=== PATIENT | male | born 1995 | race Two or more races ===

== ENCOUNTER 2024-03-10 00:26 | Emergency (ER) | payer BC, SELFPAY ==
[2024-03-10 00:40] VITALS: BP 150/80; PULSE 97; RESP 18; TEMP 36.6; O2SAT 93; BMI 25.0
--- NOTE | 2024-03-10 00:43 | XR_ITS ---
Examination: PA lateral chest 2 views TECHNIQUE: Upright PA lateral chest 2 views Exam date and time: March 2024 0124 hours Comparison December 02, 2022 INDICATIONS: Coughing shortness of breath today FINDINGS: Normal heart size. Lungs are clear. The osseous structures are intact IMPRESSION: No active disease
[2024-03-10 01:21] VITALS: PULSE 68
[2024-03-10] MEDS: IPRATROPIUM RT 0.5 MG/ 2.5 ML NEBU 1 MG INH (01:21)
[2024-03-10] MEDS: SODIUM CHLORIDE RT SOL 0.9% 3 ML NEBU INH (01:21)
[2024-03-10] MEDS: ALBUTEROL RT 2.5 MG/0.5 ML NEBU 10 MG INH (01:21)
[2024-03-10 01:27] VITALS: PULSE 67; RESP 18; O2SAT 99
[2024-03-10 01:27] LABS: Alanine Aminotransferase 15 U/L (10-49); Albumin, Serum 4.4 gm/dL (3.5-5.0); Alkaline Phosphatase 50 U/L (46-116); Anion Gap 7 (7-16); Aspartate Amino Transferase 12 U/L (0-34); BUN/Creatinine Ratio 16 Ratio (12-20); Bilirubin,Total 0.2 mg/dL (0.3-1.2); Blood Urea Nitrogen 16 mg/dL (9-23); Calcium 9.4 mg/dL (8.3-10.6); Calcium (Corrected) 9.4 mg/dL (8.5-10.1); Carbon Dioxide 30.9 mMol/L (20.0-31.0); Chloride 105 mMol/L (98-107); Estimated Creatinine Clearance 129.1 mL/min (>60); Globulin 2.2 gm/dL (2.3-3.5); Glucose 108 mg/dL (74-106); Osmolality,Calculated 287 (275-295); Sodium 143 mMol/L (136-145); Total Protein 6.6 gm/dL (5.7-8.2); eGFR > 60 See Note
[2024-03-10 01:28] LABS: Basophils % (Auto) 0 % (0-2.5); Eosinophils # (Auto) 0.1 Thou/mm3 (0.0-0.5); Eosinophils % (Auto) 1 % (0-10); Hematocrit 42.2 % (41.0-53.0); Hemoglobin 13.5 g/dL (13.5-16.0); Immature Granulocytes % (Auto) 1 % (0-0); Lymphocytes % (Auto) 30 % (10-50); Mean Corpuscular Hemoglobin 25.9 pg (25.0-35.0); Mean Corpuscular Volume 81 fL (80-100); Monocytes # (Auto) 0.6 Thou/mm3 (0.0-0.8); Monocytes % (Auto) 7 % (0-12); Neutrophils % (Auto) 61 % (37-80); Nucleated Red Blood Cell % 0 /100 WBC (0); Platelet Count 169 Thou/mm3 (140-440); RDW Standard Deviation 38.3 fL (35.1-43.9); Red Blood Count 5.21 Miln/mm3 (4.50-5.90); White Blood Count 9.9 Thou/mm3 (3.8-10.6)
--- NOTE | 2024-03-10 01:53 | PD.EDRME ---
Rapid Medical Screening Exam RME Arrival date/time: 03/10/24 00:26 28-year-old male past medical history of asthma presents emergency department complaining of shortness of breath. Chief Complaint: Asthma Time Seen by Provider: 03/10/24 00:38 Vital signs: Vital Signs Temperature 97.8 F 03/10/24 00:40 Pulse Rate 97 03/10/24 00:40 Respiratory Rate 18 03/10/24 00:40 Blood Pressure 150/80 H 03/10/24 00:40 Pulse Oximetry (%) 93 L 03/10/24 00:40 Oxygen Delivery Method Room Air 03/10/24 00:40 Vital signs reviewed by provider: Yes
--- NOTE | 2024-03-10 02:28 | EDNOTE_ITS ---
ED Asthma RME/HPI General Chief Complaint: Asthma Stated Complaint: SOB Hx of Asthma Time Seen by Provider: 03/10/24 00:38 Source: patient Arrival date/time: 03/10/24 00:26 28-year-old male past medical history of asthma presents emergency department complaining of shortness of breath that started today. Patient reports recently seen his primary care provider and prescribed him 7-day course of steroids. Patient denies any fever, chills, vomiting, or any other associated symptom. Mode of arrival: ambulatory Limitations: no limitations RME / HPI RME / HPI Narrative: 03/10/24 00:26 28-year-old male past medical history of asthma presents emergency department complaining of shortness of breath. Related Data Previous Rx's ?Medication ?Instructions ?Recorded HYDROCODONE BIT/ACETAMINOPHEN 1 tab PO Q4-6HR PRN PAIN #30 tabs 03/13/13 (Vicodin 5/300) ibuprofen 600 mg tablet 600 mg PO TIDPC #60 tabs 03/13/13 fluticasone 100 mcg-salmeterol 50 1 inh inhalation BID #60 ea 12/03/22 mcg/dose blistr powdr for inhalation Allergies Allergy/AdvReac Type Severity Reaction Status Date / Time No Known Allergies Allergy Unverified 12/03/22 10:20 Review of Systems Review of Systems Systems Reviewed: All systems reviewed, normal except as documented Constitutional Constitutional: Reports system reviewed and no additional complaints, except as documented, Denies body ache(s), Denies chills and Denies fever(s) Eyes Eyes: Reports system reviewed and no additional complaints, except as documented and Denies change in vision ENT Ears, Nose, Mouth, and Throat: Reports system reviewed and no additional complaints, except as documented, Denies disequilibrium, Denies dizziness, Denies sore throat and Denies vertigo Cardiovascular Cardiovascular: Reports system reviewed and no additional complaints, except as documented, Denies chest pain and Reports dyspnea Respiratory Respiratory: Reports system reviewed and no additional complaints, except as documented, Denies chest congestion, Denies cough and Reports dyspnea Gastrointestinal Gastrointestinal: Reports system reviewed and no additional complaints, except as documented, Denies abdominal pain, Denies nausea and Denies vomiting Musculoskeletal Musculoskeletal: Reports system reviewed and no additional complaints, except as documented, Denies abnormal gait and Denies arthralgias Integumentary/Breasts Skin/Breast: Reports system reviewed and no additional complaints, except as documented, Denies erythema, Denies rash and Denies wounds Neurologic Neurologic: Reports system reviewed and no additional complaints, except as documented, Denies abnormal gait, Denies disequilibrium, Denies dizziness and Denies vertigo Past Medical History Past Medical History CARDIAC: Negative Congestive Heart Failure RESPIRATORY: Positive Asthma; Negative Chronic Obstructive Pulmonary Disease (COPD) GENITOURINARY: Negative Renal Disease ENDOCRINE: Negative Diabetes Mellitus Type 1 or Diabetes Mellitus Type 2 Social History SMOKING STATUS: Former smoker ED Exam General Limitations: Present no limitations General appearance: Present alert and in no apparent distress Head Head exam: Present atraumatic Eye Eye exam: Present normal appearance, PERRL and EOMI ENT ENT exam: Present normal exam, normal oropharynx and mucous membranes moist Neck Neck exam: Present normal inspection, full ROM and trachea midline Chest Chest inspection: Present normal inspection and symmetric chest wall rise Respiratory Respiratory exam: Present normal lung sounds bilaterally and wheezes (Expiratory wheeze throughout) Cardiovascular Cardiovascular exam: Present regular rate, normal rhythm and normal heart sounds Abdominal Exam Abdominal exam: Present soft and normal bowel sounds Extremities Exam Extremities exam: Present normal inspection and full ROM Back Exam Back exam: Present normal inspection and full ROM Neurological Exam Neurological exam: Present alert, oriented X3 and CN II-XII intact Psychiatric Psychiatric exam: Present normal affect and normal mood Skin Skin exam: Present warm, dry, intact and normal color Course Quality Measures none Orders Category Date Time Status Bedside Influenza A&B Antigen Test NOW Care 03/10/24 00:43 Completed XR chest 2V Stat Exams 03/10/24 00:43 Taken CBC Stat Lab 03/10/24 01:00 Completed CMP [Comprehensive Metabolic Panel] Stat Lab 03/10/24 01:00 Completed ALBUTEROL RT 0.5ml [Proventil Rt 0.5ml] Med 03/10/24 00:43 Discontinued 10 mg INH X1 ONE Dexamethasone Inj [Decadron Inj] Med 03/10/24 01:09 Discontinued 10 mg IM X1 ONE Ipratropium [place] Rt Kaley [Atrovent Rt Kaley] Med 03/10/24 00:43 Discontinued 1 mg INH X1 ONE Sodium Chloride Rt Kaley 0.9% [NS Rt Kaley 0.9%] Med 03/10/24 00:43 Active 3 ml INH PRN PRN Vital Signs Vital signs: Vital Signs Temperature 97.8 F 03/10/24 00:40 Pulse Rate 97 03/10/24 00:40 Respiratory Rate 18 03/10/24 00:40 Blood Pressure 150/80 H 03/10/24 00:40 Pulse Oximetry (%) 93 L 03/10/24 00:40 Oxygen Delivery Method Room Air 03/10/24 00:40 93% room air within normal limits Asthma MDM Narrative MDM Narrative:: 28-year-old male past medical history of asthma presents emergency department complaining of shortness of breath that started today. Patient reports recently seen his primary care provider and prescribed him 7-day course of steroids. Patient denies any fever, chills, vomiting, or any other associated symptom. Patient given steroids and hour-long breathing treatment which significantly improved wheezing and symptoms. Patient speaking in full sentences with no obvious nasal flaring or tripoding. Patient reports has 7-day course of steroids that he just started yesterday. Patient reports also has inhaler at home. Patient stable for discharge instructed to have close follow-up with primary care provider in 24 to 48 hours and return immediately to emergency department for any increased shortness of breath or worsening symptoms. Patient data External records reviewed:: [facility] previous records Clinical information provided by:: patient Social determinants that could affect healthcare access:: none Patient has the following chronic illnesses:: Asthma How is presenting disease/condition affected by chronic disease/condition?: exacerbated by Evaluation data The following diagnostics were reviewed and interpreted by me:: lab results and radiology exam(s) Lab and/or radiology exams considered but not ordered:: Ordered Interpretation Summary: Interpreted by me Medications / Prescriptions Medications or Prescriptions considered but not ordered:: Ordered Medication administrations:: Medication Administration History Sodium Chloride (Sodium Chloride Rt Kaley 0.9% 3 Ml Nebu) 3 ml INH PRN PRN PRN Reason: SOLN Stop: 04/09/24 00:42 Last Admin: 03/10/24 01:21 Dose: 3 ml Documented By: BIBIANA Discontinued Medications Albuterol (Albuterol Rt 2.5 Mg/0.5 Ml Nebu) 10 mg INH X1 ONE Stop: 03/10/24 00:44 Last Admin: 03/10/24 01:21 Dose: 10 mg Documented By: PAR Dexamethasone Sodium Phosphate (Dexamethasone Sod Phos Inj 10 Mg/Ml Vial) 10 mg IM X1 ONE Stop: 03/10/24 01:10 Ipratropium [place] (Ipratropium Rt 0.5 Mg/ 2.5 Ml Nebu) 1 mg INH X1 ONE Stop: 03/10/24 00:44 Last Admin: 03/10/24 01:21 Dose: 1 mg Documented By: PAR Given Consultations Consultation(s) initiated? (list below): No Diagnosis Differential diagnosis asthma: Acute exacerbation, Status asthmaticus, Acute asthmatic bronchitis, PE, Pneumonia and Pneumothorax Most likely diagnosis given after review of the tests above:: Asthma with exacerbation Admission Indicated Admission indicated?: not indicated Admission Request Was there a request for admission?: No Disposition Plan Disposition Plan: Discharge Discharge Attestation Discharge Attestation: The patient and all family members were given an opportunity to ask questions and understood the discharge instructions. Discharge instructions specifically effects, indications for sooner follow up or return to the emergency department, and the expected course of current diagnosis. Patient condition: Stable Discharge Plan Plan Patient Disposition: HOME (Self Care) Disposition Comment: Stable Prescriptions/Referrals Prescriptions/Med Rec: No Action ibuprofen 600 MG tablet 600 mg PO TIDPC Qty: 60 0RF HYDROCODONE BIT/ACETAMINOPHEN (Vicodin 5/300) 1 TAB tablet 1 tab PO Q4-6HR PRN (Reason: PAIN) Qty: 30 0RF fluticasone propion-salmeterol 100-50 mcg/dose blister with device 1 inh inhalation BID Qty: 60 5RF Problem List Clinical Impression: Asthma with acute exacerbation Patient/Caregiver Discharge Instructions Discharge Activity: activity as tolerated Education Materials: Controlling Other Triggers, Controlling Your Asthma, ED Inhaler Use, Asthma Additional Instructions: Use inhaler as needed for any wheezing or shortness of breath. Continue taking steroids as prescribed by your primary care provider. Close follow-up with primary care provider in 24 to 40 hours. Return immediate to emergency department for any worsening symptoms or shortness of breath or as needed. Avoid asthma triggers as much as possible. Print Language: Cameroonian Stand Alone Forms: Kalee Award Info., Patient Portal Info Letter PA/MONICA Supervising Physician ILEANA/MONICA Supervising Physician: Dr. Carey
[2024-03-10] MEDS: DEXAMETHASONE SOD PHOS INJ 10 MG/ML VIAL IM (02:35)
[2024-03-10 02:36] VITALS: BP 149/86; PULSE 65; RESP 18; O2SAT 100
== END 2024-03-10 03:13 | disposition home or self-care (01) ==
LOC: SERX 03:12
PROVIDERS: Emergency Provider Emergency Medicine; PCP Family Medicine
DX: J45.901 Unspecified asthma with (acute) exacerbation (principal); Z87.891 Personal history of nicotine dependence
CPT/HCPCS: 36415; 71046; 80053; 85025; 87400; 94644; 96372; 99283; J1100

== ENCOUNTER 2024-05-17 03:28 | Emergency (ER) | payer BC, SELFPAY ==
[2024-05-17 03:29] VITALS: BMI 25.8
[2024-05-17 03:34] VITALS: BP 165/94; PULSE 97; RESP 20; TEMP 36.8; O2SAT 89
--- NOTE | 2024-05-17 03:40 | XR_ITS ---
Examination: PA lateral chest 2 views TECHNIQUE: Upright PA lateral chest 2 views Exam date and time: 05/17/2024 0359 hours INDICATIONS: Shortness of breath today. FINDINGS: Mild hyperexpansion. Normal heart size No pneumonia IMPRESSION: Mild hyperexpansion
--- NOTE | 2024-05-17 03:41 | PD.EDRME ---
Rapid Medical Screening Exam RME Arrival date/time: 05/17/24 03:28 Chief Complaint: Shortness of Breath/Dyspnea Time Seen by Provider: 05/17/24 03:33 Vital signs: Vital Signs Temperature 98.2 F 05/17/24 03:34 Pulse Rate 97 05/17/24 03:34 Respiratory Rate 20 05/17/24 03:34 Blood Pressure 165/94 H 05/17/24 03:34 Pulse Oximetry (%) 89 L 05/17/24 03:34 Oxygen Delivery Method Room Air 05/17/24 03:34 Vital signs reviewed by provider: Yes RME Narrative: 1-year-old male presents for evaluation of asthma exacerbation. Patient reports that he woke up from sleep feeling short of breath with diffuse wheezing which was not improved following albuterol inhaler at home. Patient reports history of hospital admission for asthma exacerbation. Denies recent illness.
[2024-05-17 04:34] VITALS: PULSE 82; RESP 20; O2SAT 92
[2024-05-17] MEDS: ALBUTEROL/IPRATROPIUM (Duoneb) RT SOL 3 ML NEBU INH ×2 (04:34→05:05)
[2024-05-17 05:05] VITALS: PULSE 72; RESP 20; O2SAT 99
[2024-05-17] MEDS: DEXAMETHASONE SOD PHOS INJ 10 MG/ML VIAL IM (05:15)
--- NOTE | 2024-05-17 05:35 | PD.EDSOB ---
ED SOB =RME/HPI General Chief Complaint: Shortness of Breath/Dyspnea Stated Complaint: SOB, ASTHMA Time Seen by Provider: 05/17/24 03:33 Arrival date/time: 05/17/24 03:28 Limitations: no limitations RME / HPI RME / HPI Narrative: 28-year-old male presents for evaluation of asthma exacerbation. Patient reports that he woke up from sleep feeling short of breath with diffuse wheezing which was not improved following albuterol inhaler at home. Patient denies fever, chills, mopped assist, chest pain, nausea, vomiting Patient reports history of hospital admission for asthma exacerbation. Denies recent illness, recent travel, hormone use, history of blood clots, and known sick contacts.. MD Complaint: shortness of breath and asthma attack Known history of: asthma Treatment prior to arrival: bronchodilator Related Data Home oxygen amount: none Previous Rx's ?Medication ?Instructions ?Recorded HYDROCODONE BIT/ACETAMINOPHEN 1 tab PO Q4-6HR PRN PAIN #30 tabs 03/13/13 (Vicodin 5/300) ibuprofen 600 mg tablet 600 mg PO TIDPC #60 tabs 03/13/13 fluticasone 100 mcg-salmeterol 50 1 inh inhalation BID #60 ea 12/03/22 mcg/dose blistr powdr for inhalation albuterol sulfate 90 mcg/actuation 2 puff inhalation Q6H PRN 05/17/24 aerosol inhaler (Ventolin HFA) shortness of breath or wheezing #8.5 grams Allergies Allergy/AdvReac Type Severity Reaction Status Date / Time No Known Allergies Allergy Unverified 12/03/22 10:20 Review of Systems Constitutional Constitutional: Denies chills, Denies fever(s), Denies headache(s) and Denies weakness ENT Ears, Nose, Mouth, and Throat: Denies headache(s) Cardiovascular Cardiovascular: Denies chest pain, Denies diaphoresis and Reports dyspnea Respiratory Respiratory: Denies cough, Reports dyspnea, Denies excessive phlegm production, Denies hemoptysis and Reports wheezing Gastrointestinal Gastrointestinal: Denies abdominal pain, Denies nausea and Denies vomiting Musculoskeletal Musculoskeletal: Denies back pain Integumentary/Breasts Skin/Breast: Denies change in pigmentation Neurologic Neurologic: Denies headache(s) and Denies weakness Allergic/Immunologic Allergic/Immunologic: Reports wheezing Past Medical History Past Medical History CARDIAC: Negative Congestive Heart Failure RESPIRATORY: Positive Asthma; Negative Chronic Obstructive Pulmonary Disease (COPD) GENITOURINARY: Negative Renal Disease ENDOCRINE: Negative Diabetes Mellitus Type 1 or Diabetes Mellitus Type 2 Social History SMOKING STATUS: Never smoker ED Exam General Limitations: Present no limitations General appearance: Present alert and in no apparent distress Head Head exam: Present atraumatic and normocephalic Eye Eye exam: Present normal appearance and EOMI ENT ENT exam: Present normal oropharynx and mucous membranes moist Neck Neck exam: Present normal inspection, full ROM and trachea midline Chest Chest inspection: Present symmetric chest wall rise Respiratory Respiratory exam: Present wheezes (Diffuse, bilateral.); Absent stridor or accessory muscle use Cardiovascular Cardiovascular exam: Present regular rate and +S1 Abdominal Exam Abdominal exam: Present soft; Absent distention Neurological Exam Neurological exam: Present alert and normal gait Psychiatric Psychiatric exam: Present normal affect Skin Skin exam: Present warm, dry and normal color Course Quality Measures none Orders Category Date Time Status Bedside COVID-19 Antigen Test NOW Care 05/17/24 03:40 Completed Bedside Influenza A&B Antigen Test NOW Care 05/17/24 03:40 Completed XR chest 2V Stat Exams 05/17/24 03:40 Completed Albuterol/Ipratr Rt Kaley [Duoneb Rt Kaley] Med 05/17/24 04:59 Discontinued 3 ml .ROUTE .STK-MED ONE Albuterol/Ipratr Rt Kaley [Duoneb Rt Kaley] Med 05/17/24 03:37 Discontinued 3 ml INH X1 ONE Albuterol/Ipratr Rt Kaley [Duoneb Rt Kaley] Med 05/17/24 04:54 Discontinued 3 ml INH X1 ONE Dexamethasone Inj [Decadron Inj] Med 05/17/24 03:40 Discontinued 10 mg IM X1 ONE Vital Signs Vital signs: Vital Signs Temperature 98.2 F 05/17/24 03:34 Pulse Rate 97 05/17/24 03:34 Respiratory Rate 20 05/17/24 03:34 Blood Pressure 165/94 H 05/17/24 03:34 Pulse Oximetry (%) 89 L 05/17/24 03:34 Oxygen Delivery Method Room Air 05/17/24 03:34 Pulse ox initially 89% on room air. On reevaluation following breathing treatment 99% on room air, within normal limits. Shortness of Breath / Dyspnea MDM Narrative MDM Narrative:: 1-year-old male with history of asthma presents for evaluation of shortness of breath x 1 day. Patient initially hypoxic at 89% but improved following breathing treatment. No reported risk factors for PE therefore D-dimer was not ordered today. Chest x-ray showed no evidence of pneumonia and patient remained afebrile, therefore no antibiotics warranted at this time. More likely asthma exacerbation for which patient was given nebulized medication in the department with improvement in symptoms. Patient given dose of steroids in the department to facilitate reduction in inflammation and airways. Ultimately the patient was discharged home with plan to follow-up with primary care within the next 2 to 3 days for further asthma management. Patient was discharged with a prescription for albuterol inhaler. Return precautions were provided. Patient stable at time of discharge. Patient data External records reviewed:: [facility] previous records Clinical information provided by:: patient Social determinants that could affect healthcare access:: none Patient has the following chronic illnesses:: Asthma How is presenting disease/condition affected by chronic disease/condition?: caused by Evaluation data The following diagnostics were reviewed and interpreted by me:: radiology exam(s) Lab and/or radiology exams considered but not ordered:: Labs considered not ordered. Interpretation Summary: COVID and flu swabs negative. Chest x-ray significant for mild hyperexpansion, otherwise no consolidations, trachea midline, no pneumothorax. Medications / Prescriptions Medications or Prescriptions considered but not ordered:: Rx given. Medication administrations:: Medication Administration History Discontinued Medications Albuterol/Ipratropium (Albuterol/Ipratropium (Duoneb) Rt Kaley 3 Ml Nebu) 3 ml INH X1 ONE Stop: 05/17/24 03:38 Last Admin: 05/17/24 04:34 Dose: 3 ml Documented By: NE Albuterol/Ipratropium (Albuterol/Ipratropium (Duoneb) Rt Kaley 3 Ml Nebu) 3 ml INH X1 ONE Stop: 05/17/24 04:55 Last Admin: 05/17/24 05:05 Dose: 3 ml Documented By: JEOVANNY Albuterol/Ipratropium (Albuterol/Ipratropium (Duoneb) Rt Kaley 3 Ml Nebu) Confirm Administered Dose 3 ml .ROUTE .STK-MED ONE Stop: 05/17/24 05:00 Last Admin: 05/17/24 05:05 Dose: Not Given Documented By: JEOVANNY Non-Admin Reason: Override Medication Dexamethasone Sodium Phosphate (Dexamethasone Sod Phos Inj 10 Mg/Ml Vial) 10 mg IM X1 ONE Stop: 05/17/24 03:41 Last Admin: 05/17/24 05:15 Dose: 10 mg Documented By: LIAM Rx given. Consultations Consultation(s) initiated? (list below): No Diagnosis Shortness of Breath Differential Diagnosis: acute exacerbation of chronic obstructive airways disease, community acquired pneumonia, asthma with exacerbation and other (Pneumothorax, COVID, flu.) Most likely diagnosis given after review of the tests above:: Asthma exacerbation. Admission Indicated Admission indicated?: not indicated Admission Request Was there a request for admission?: No Disposition Plan Disposition Plan: Discharge Discharge Attestation Discharge Attestation: The patient and all family members were given an opportunity to ask questions and understood the discharge instructions. Discharge instructions specifically effects, indications for sooner follow up or return to the emergency department, and the expected course of current diagnosis. Patient condition: Stable Discharge Plan Plan Patient Disposition: HOME (Self Care) Disposition Comment: stable Prescriptions/Referrals Prescriptions/Med Rec: New albuterol sulfate [Ventolin HFA] 90 mcg/actuation HFA aerosol inhaler 2 puff inhalation Q6H PRN (Reason: shortness of breath or wheezing) Qty: 8.5 0RF No Action ibuprofen 600 MG tablet 600 mg PO TIDPC Qty: 60 0RF HYDROCODONE BIT/ACETAMINOPHEN (Vicodin 5/300) 1 TAB tablet 1 tab PO Q4-6HR PRN (Reason: PAIN) Qty: 30 0RF fluticasone propion-salmeterol 100-50 mcg/dose blister with device 1 inh inhalation BID Qty: 60 5RF Referrals: Benita Michael FNP [Primary Care Provider] - In 1 week Problem List Clinical Impression: Asthma with exacerbation Patient/Caregiver Discharge Instructions Other Activity Instructions:: Follow-up with primary care within the next 24 hours as discussed. Consider nebulized medication prescription and discuss asthma action plan with PCP. Return to the ED if your symptoms worsen or change. Education Materials: Asthma Action Plan, ED Asthma, Acute (Adult), Asthma Print Language: Slovak Stand Alone Forms: Kalee Award Info., Patient Portal Info Letter ILEANA/MONICA Supervising Physician ILEANA/MONICA Supervising Physician: Dr. Carey
== END 2024-05-17 06:04 | disposition home or self-care (01) ==
PROVIDERS: Emergency Provider Emergency Medicine; PCP Nurse Practitioner Family
DX: J45.901 Unspecified asthma with (acute) exacerbation (principal)
CPT/HCPCS: 71046; 87400; 87811; 94640; 96372; 99284; A9270; J1100